=== PATIENT | male | born 1945 | race Caucasian/White ===

== ENCOUNTER 2022-08-28 07:58 | Emergency (ER) | payer MEDICARE ==
[~2022-08-28] VITALS: Ht 172.7 cm; Wt 72.6 kg
[~2022-08-28 07:58] MED LIST: ASPI325 PO; Depo-Testo100 MG/1 M IM; LEVSOD100 PO; METO25ER PO
[2022-08-28] MEDS ORDERED: AMOCLA875 PO (09:32)
== END 2022-08-28 09:38 | disposition home or self-care (01) ==
LOC: ER 07:58
DX: J69.0 Pneumonitis due to inhalation of food and vomit (principal); Z87.891 Personal history of nicotine dependence
CPT/HCPCS: 71046; A9270